=== PATIENT | female | born 1945 | race Caucasian/White ===

== ENCOUNTER → 2016-11-26 | Outpatient (CLI) | payer MEDICARE, OTHER ==
--- NOTE | 2016-11-27 08:49 | RAD ---
EXAM DESCRIPTION: Chest,2 Views CLINICAL HISTORY: ESSENTIAL PRIMARY HYPERTENSION COMPARISON: September 06, 2015 TECHNIQUE: PA/lateral FINDINGS: The lungs are well expanded and clear. No infiltrates or effusions or masses are noted. The heart is normal in size and shape with no evidence of vascular congestion. The teto and mediastinum demonstrate normal contours. The bony spine and chest wall is normal for age in appearance. IMPRESSION: Normal chest, two views Electronically signed by: Onur Owen MD 11/27/2016 8:48 AM CDT
== END | disposition home or self-care (01) ==
LOC: LAB.O 10:15
PROVIDERS: ATTEND Nurse Practitioner Family
DX: I10 Essential (primary) hypertension (principal)

== ENCOUNTER → 2017-01-07 | Outpatient (CLI) | payer MEDICARE, OTHER ==
--- NOTE | 2017-01-09 12:59 | MAM ---
EXAM DESCRIPTION: 3D Screening BILATERAL CLINICAL HISTORY: 71 yearsFemaleSCREENING . No complaints. Bilateral breast implants. Postmenopausal. Right breast biopsy. Family history of ovarian cancer. COMPARISON: Baseline study at this facility. No prior reports available. TECHNIQUE: Bilateral digital screening. CC and MLO projection full-field, 2-D images. Bilateral Yen implant displacement images, CC and MLO full-field projections, 3-D tomosynthesis. FINDINGS: The breast parenchymal density pattern is: Heterogeneously dense breast tissue, which may obscure small masses. Bilateral intramammary lymph nodes. Implant capsules are slightly lobulated and partially calcified. Implants are subpectoral. Solitary microcalcifications bilaterally. No skin thickening or nipple retraction bilaterally. Biopsy site markers in the lateral middle third of the right breast and the central posterior third of the right breast. No focal, stellate mass or density no focal asymmetry, and no suspicious microcalcifications bilaterally. IMPRESSION: BI-RADS CATEGORY: 2 - BENIGN FINDINGS. FOLLOW UP: Routine digital bilateral screening, one year interval from December 2016. Written communication explaining the IMPRESSION and follow-up, will be mailed to the patient and referring health care provider. According to the [employer], yearly mammograms are recommended starting at age 40 and continuing as long as a woman is in good health. Any breast change noted on a breast self-exam should be reported promptly to the patient's healthcare provider. Breast MRI is recommended for women with an approximately 20-25% or greater lifetime risk of breast cancer, including women with a strong family history of breast or ovarian cancer and women who have been treated for Hodgkin's disease. A negative mammographic report should not delay tissue diagnosis in patients with significant clinical history or physical findings. Extremely dense breast tissue limits the sensitivity of digital mammography. Electronically signed by: Matt Pierre MD 01/09/2017 12:57 PM CDT
== END ==
LOC: MAMMO 08:14
PROVIDERS: ATTEND Nurse Practitioner Family
DX: Z12.31 Encounter for screening mammogram for malignant neoplasm of breast (principal)
CPT/HCPCS: 77063; G0202

== ENCOUNTER → 2017-08-19 | Outpatient (CLI) | payer MEDICARE, OTHER ==
--- NOTE | 2017-08-19 14:30 | MRI ---
MRI left hip without contrast INDICATION: Painful hip arthroplasty TECHNIQUE: Noncontrast MR imaging left hip metal artifact reduction protocol FINDINGS: There is focal osteonecrosis without advanced collapse in the superior aspect of the right femoral head incidentally noted. This area of osteonecrosis measures about 2.3 cm in diameter. This appears subacute to chronic. No definite periprosthetic fracture pseudotumor or osteolysis involving the left hip arthroplasty. There is degenerative disc disease L5-S1. No evidence of acute pelvic fracture or destructive osseous lesion. No regional tendon rupture. IMPRESSION: Status post left hip arthroplasty without evident complication Osteonecrosis right femoral head without beth collapse Electronically signed by: Arsalan Schneider MD 08/19/2017 2:29 PM CDT
== END ==
LOC: MRI 09:32
PROVIDERS: ATTEND Nurse Practitioner Family
DX: M25.552 Pain in left hip (principal); Z96.642 Presence of left artificial hip joint; M87.852 Other osteonecrosis, left femur

== ENCOUNTER → 2018-10-27 | Outpatient (CLI) | payer MEDICARE, OTHER | LOC: LAB.O 10:40 | PROVIDERS: ATTEND Nurse Practitioner Family | DX: R42 Dizziness and giddiness (principal) ==

== ENCOUNTER → 2018-12-01 | Outpatient (CLI) | payer MEDICARE, OTHER ==
--- NOTE | 2018-12-02 14:13 | US ---
EXAM DESCRIPTION: Breast,Right (accession [id number]), Diagnostic Mammo,Bilateral (accession [id number]): Ultrasound CLINICAL HISTORY: 73 yearsFemaleAbnormal findings on images . Abnormal MRI breast examination: Abnormal contrast uptake in the right breast at . Having bilateral breast implants removed. No personal or family history of breast cancer. Mother and remote relatives with history of uterine/ovarian cancer. Childbirth. Postmenopausal 15+ years. Currently on HRT. Bilateral mammoplasty 1981. Lifetime risk of developing breast cancer (Tyrer-Cuzick model)(%): 6.6. COMPARISON: Bilateral breast MRI without and with gadolinium IV contrast 11/22/2018. Bilateral screening digital breast tomosynthesis 01/08/2017 TECHNIQUE: Bilateral LM, MLO, and CC projection full-field images, with Yen implant displacement, digital mammographic tomosynthesis technique. Bilateral 2-D digital full-field MLO, CC, and LM full-field images, nondisplaced,. CAD not available. . Transcutaneous scanning of the right breast utilizing morse-scale and Doppler modes. Scanning performed by the installment dealer ; observation by Dr. Pierre. FINDINGS: The breast parenchymal density pattern is: Heterogeneously dense breast tissue, which may obscure small masses.. No skin thickening or nipple retraction bilaterally. 2 biopsy site markers in the middle third of the right breast near the posterior nipple line and at the 9:00 position. Focal asymmetry in the upper outer quadrant of the posterior third of the right breast. This is in the region of abnormal enhancement on the breast MRI examination. Slightly denser on the current study on the anterior medial aspect of this tissue. Bilateral silicone retro-muscular implants with lobulated and slightly irregular margins and calcified margins. On the CC right breast non- displaced image, there is more density of tissue compared to the prior study. Stable appearance of breast density on the implant displaced right CC tomosynthesis images. Ultrasound: Scanning of the regions of interest. 8:00 and 10:00, upper outer quadrant right breast, mid and posterior third. Heterogeneous mixture of fibroglandular and fatty echotextures. Hypoechoic nodular density wider than tall orientation 7.6 mm long axis with partially circumscribed margins and posterior acoustic enhancement and shadowing. No calcifications. This object could not be reproduced on later scans observed by Dr. Pierre. Circumscribed hypoechoic lymph node 10 x 8 mm, central echogenicity but not vascular. Wider than tall orientation and posterior acoustic enhancement. This was reproducible. No dominant solid mass or distinct cyst. No parenchymal edema or large calcifications. No overlying skin changes. IMPRESSION: BI-RADS CATEGORY: 3 - PROBABLY BENIGN. Management: Short interval (6-month) follow-up with continued surveillance diagnostic right breast mammography and targeted right breast ultrasound. This is dependent upon timing of removal of bilateral breast implants.. The FINDINGS and the FOLLOW-UP plan were reviewed in person with the patient after the examination. Written communication explaining the IMPRESSION and FOLLOW-UP will be mailed to the patient and referring care provider. Electronically signed by: Matt Pierre MD 12/02/2018 2:11 PM CDT
== END ==
LOC: US 13:30
PROVIDERS: ATTEND Nurse Practitioner Family
DX: R92.8 Other abnormal and inconclusive findings on diagnostic imaging of breast (principal)

== ENCOUNTER → 2019-02-03 | Outpatient (CLI) | payer MEDICARE, OTHER | LOC: LAB.O 15:05 | PROVIDERS: ATTEND Nurse Practitioner Family | DX: N30.01 Acute cystitis with hematuria (principal) ==

== ENCOUNTER → 2019-08-23 | Outpatient (CLI) | payer MEDICARE, OTHER ==
--- NOTE | 2019-08-23 17:15 | MAM ---
EXAM DESCRIPTION: 3D Diagnostic, Bilateral (accession [id number]), Breast,Right (accession [id number]): Ultrasound CLINICAL HISTORY: 74 [id number] 6 month follow-up posterior right breast focal asymmetry. Abnormal MRI contrast uptake in the right breast. Previous childbirth. Postmenopausal approximately age 61. Currently on HRT. Bilateral mammoplasty. Lifetime risk of developing breast cancer (Tyrer-Cuzick model)(%): 6.6. COMPARISON: Other TECHNIQUE: Right breast LM, CC, and MLO projection full-field images, digital tomosynthesis technique. Right breast 2-D digital full-field images: LM, CC, and MLO projections. Right breast CC and MLO and bilateral LM images with implant displacement 2-D and tomosynthesis. CAD available for 2-D images.. Transcutaneous scanning of the right breast utilizing morse-scale and Doppler modes. Scanning performed by the freezer laboratory technician and Dr. Pierre. FINDINGS: The breast parenchymal density pattern is: Heterogeneously dense breast tissue, which may obscure small masses. No skin thickening or nipple retraction right breast biopsy site markers middle third of the posterior nipple line and lateral middle third to posterior third at 9:00 position. Region of focal asymmetry medial to the prior lateral biopsy site and slightly superior. No change from the prior study. Not associated with microcalcifications. Skin mole marker upper mid left breast. Bilateral retro-muscular implants show lobulated margins and partial calcification. Left axillary lymph node. No new focal, stellate mass or density, focal asymmetry , and no suspicious microcalcifications bilaterally. Ultrasound: Right breast at the 10:00 position, 8 cm from the nipple. Irregular fibroglandular tissues with peripheral fatty replacement. No dominant solid mass, no distinct cyst, no large calcifications. No overlying skin changes. IMPRESSION: Benign exam. BIRAD CATEGORY: 2 BENIGN FINDINGS. RECOMMENDATIONS: FOLLOW UP: Routine digital bilateral mammographic screening, after one year anniversary date for routine digital imaging left breast in November 2018 Written communication explaining the IMPRESSION and follow-up, will be mailed to the patient and referring health care provider. The FINDINGS and the FOLLOW-UP plan were reviewed in person with the patient after the examination. According to the [employer], yearly mammograms are recommended starting at age 40 and continuing as long as a woman is in good health. Any breast change noted on a breast self-exam should be reported promptly to the patient's healthcare provider. Breast MRI is recommended for women with an approximately 20-25% or greater lifetime risk of breast cancer, including women with a strong family history of breast or ovarian cancer and women who have been treated for Hodgkin's disease. A negative mammographic report should not delay tissue diagnosis in patients with significant clinical history or physical findings. Extremely dense breast tissue limits the sensitivity of digital mammography. Electronically signed by: Matt Pierre MD 08/23/2019 5:14 PM CDT
== END ==
LOC: US 10:00
PROVIDERS: ATTEND Nurse Practitioner Family
DX: R92.8 Other abnormal and inconclusive findings on diagnostic imaging of breast (principal)
CPT/HCPCS: 76641; 77066; G0279

== ENCOUNTER → 2020-05-01 | Outpatient (CLI) | payer MEDICARE, OTHER ==
--- NOTE | 2020-05-01 16:43 | RAD ---
EXAM DESCRIPTION: Pelvis (accession [id number]), Hip,Right 2 Views (accession [id number]) CLINICAL HISTORY: 75 years Female, PAIN IN RIGHT HIP COMPARISON: October 04, 2015 Findings: 3 view(s)/radiograph(s) Left hip arthroplasty. No hardware complication. No acute fracture or dislocation. No focal soft tissue swelling. Osteopenia. Moderate right hip osteoarthritis. IMPRESSION: No acute osseous abnormality in the right hip/pelvis. Electronically signed by: Yvon Corbett MD 05/01/2020 4:42 PM [facility]
--- NOTE | 2020-05-01 16:44 | RAD ---
EXAM DESCRIPTION: Pelvis (accession [id number]), Hip,Right 2 Views (accession [id number]) CLINICAL HISTORY: 75 years Female, PAIN IN RIGHT HIP COMPARISON: October 04, 2015 Findings: 3 view(s)/radiograph(s) Left hip arthroplasty. No hardware complication. No acute fracture or dislocation. No focal soft tissue swelling. Osteopenia. Moderate right hip osteoarthritis. IMPRESSION: No acute osseous abnormality in the right hip/pelvis. Electronically signed by: Yvon Corbett MD 05/01/2020 4:42 PM [facility]
== END ==
LOC: RAD 11:48
PROVIDERS: ATTEND Nurse Practitioner Family
DX: M25.551 Pain in right hip (principal)